=== PATIENT | female | born 2000 | race Two or more races ===

== ENCOUNTER 2024-10-15 03:52 | Emergency (ER) | payer SELFPAY ==
[~2024-10-15] VITALS: Ht 162.6 cm; Wt 49.4 kg
[2024-10-15] MEDS ORDERED: METOCLOPRAMIDE HCL 10 MG TABLET ONE ×2 (06:43→08:45)
[2024-10-15] MEDS ORDERED: diphenhydrAMINE HCL 25 MG CAPSULE ONE (06:43)
[2024-10-15] MEDS ORDERED: KETOROLAC TROMETHAMINE INJ 30 MG/ML VIAL ONE (06:43)
[2024-10-15] MEDS ORDERED: PSEUDOEPHEDRINE HCL 30 MG TABLET ONE (06:44)
[2024-10-15] MEDS: KETOROLAC TROMETHAMINE INJ 30 MG/ML VIAL IM ONE (06:51)
[2024-10-15] MEDS: DIPHENHYDRAMINE HCL 12.5 MG/5 ML UDC PO ONE (06:52)
[2024-10-15] MEDS: METOCLOPRAMIDE HCL 10 MG TABLET PO ONE ×2 (06:52→08:46)
[2024-10-15] MEDS: PSEUDOEPHEDRINE HCL 30 MG TABLET PO ONE (06:52)
[2024-10-15 08:51] VITALS: BP 121/84; TEMP 98; O2SAT 100
== END 2024-10-15 08:51 | disposition home or self-care (01) ==
LOC: ER 04:00
DX: G43.909 Migraine, unspecified, not intractable, without status migrainosus (principal); F17.200 Nicotine dependence, unspecified, uncomplicated; J45.909 Unspecified asthma, uncomplicated; Z88.0 Allergy status to penicillin
CPT/HCPCS: 99284; 96372; Q0163 ×2; J8597 ×2; J1885